=== PATIENT | female | born 1960 | race Caucasian/White ===

== ENCOUNTER 2017-09-15 04:59 | Emergency (ER) | payer OTHER, SELFPAY ==
[2017-09-15 05:07] VITALS: BP 119/82; PULSE 86; RESP 20; TEMP 36.8; O2SAT 97; BMI 25.0
[2017-09-15 05:17] VITALS: BP 119/82; PULSE 86; RESP 20; TEMP 36.8; O2SAT 97; BMI 25.0
--- NOTE | 2017-09-15 05:18 | ED.DENTAL ---
HPI - Dental/Oral General Chief complaint: Dental/Oral Stated complaint: Right jaw pain into ear Time Seen by Provider: 09/15/17 05:18 Source: patient Mode of arrival: ambulatory Limitations: no limitations History of Present Illness HPI Narrative: The patient has developed right jaw pain. She has increased pain with opening her mouth. She has no facial swelling. She has no sore throat, sinus pressure or ear pain. She has no fever. The pain started 2 days ago, and is intensifying. She has no significant history of dental disease. Related Data Previous Rx's Medication Instructions Recorded lorazepam 1 mg tablet See Label Instructions PO TID #90 09/13/17 tab amoxicillin 500 mg PO TID #30 cap 09/15/17 fluconazole [Diflucan] See Label Instructions .ROUTE 09/15/17 .COMPLEX #1 tab hydrocodone-acetaminophen [[facility]] 1 tab PO Q4H PRN #10 tab 09/15/17 Allergies Allergy/AdvReac Type Severity Reaction Status Date / Time hydromorphone [From DILAUDID] AdvReac Mild VOMITING Verified 09/15/17 05:11 Review of Systems Constitutional Reports as per HPI, Denies chills, Denies fever(s), Denies lethargy and Denies weakness ENT Ears, Nose, Mouth, and Throat: Denies dry mouth, Denies ear discharge, Reports facial pain, Denies hoarseness, Denies mouth lesions, Denies nasal congestion, Denies sinus pressure and Denies sore throat Cardiovascular Denies chest pain at rest Neurologic Denies weakness [facility] Surgical History History of third molar tooth extraction Status post cone biopsy of cervix Status post tonsillectomy and adenoidectomy Social History Smoking Status: Never smoker Exam Initial Vital Signs Initial Vital Signs: Vital Signs Temperature 98.2 F 09/15/17 05:07 Pulse Rate 86 09/15/17 05:07 Respiratory Rate 20 09/15/17 05:07 Blood Pressure 119/82 H 09/15/17 05:07 Pulse Oximetry 97 09/15/17 05:07 Const General: cooperative and well developed Nutritional Appearance: well nourished Orientation: alert, awake, oriented x3 and not confused HENMT Head: normocephalic and atraumatic Ears: TM's normal bilaterally Nose: nasal mucous membranes and turbinates normal Face and sinus: normal facial exam and sinuses nontender Mouth: oral mucosae normal Teeth and gingiva: abnormal tooth or associated gingiva (Tenderness at tooth #2. Suggestive of dental abscess. There is no significant fluctuance at the base. There is ) and caries (#2) Throat: posterior oropharynx normal Neck Neck: No anterior neck swelling and No lymphadenopathy Course Orders Ordered: Hydrocodone Bitart/Acetaminophen ([facility] 5/325) 1 tab PO NOW ONE Stop: 09/15/17 05:27 Amoxicillin (Trimox) 500 mg PO NOW ONE Stop: 09/15/17 05:27 Ketorolac Tromethamine (Toradol) 60 mg IM NOW ONE Stop: 09/15/17 05:27 Vital Signs - 8 hr 09/15/17 05:07 09/15/17 05:17 Temperature 98.2 F 98.2 F Pulse Rate 86 86 Respiratory Rate 20 20 Blood Pressure 119/82 H 119/82 H Pulse Oximetry 97 97 Discharge Plan Departure Patient Disposition: Home, Self-Care Clinical Impression: Dental abscess Instructions: Tooth Abscess Activity Restrictions/Additional Instructions: Amoxicillin 500 milligrams 3 times daily. Advil 3 tablets every 6 hours as needed for pain. [facility] every 4 hours as needed for added pain control. Return here for fever or significant facial swelling. Make a plan to see a dentist in 2-3 weeks. Prescriptions: New amoxicillin 500 mg capsule 500 mg PO TID Qty: 30 RF: 0 fluconazole [Diflucan] 100 mg tablet See Label Instructions .ROUTE .COMPLEX Qty: 1 RF: 0 hydrocodone-acetaminophen [[facility]] 5-325 mg tablet 1 tab PO Q4H PRN (Reason: pain) Qty: 10 RF: 0 No Action lorazepam 1 mg tablet See Label Instructions PO TID Qty: 90 RF: 3
[2017-09-15] MEDS: KETOROLAC 60 MG/2 ML VIAL IM (05:32)
[2017-09-15] MEDS: AMOXICILLIN 250 MG CAPSULE 500 MG PO (05:33)
[2017-09-15] MEDS: HYDROCODONE/ACET 5/325 TABLET 1 TAB PO (05:33)
--- NOTE | 2017-09-15 05:53 | ED_ITS ---
HPI - Dental/Oral General Chief complaint: Dental/Oral Stated complaint: Right jaw pain into ear Time Seen by Provider: 09/15/17 05:18 Source: patient Mode of arrival: ambulatory Limitations: no limitations History of Present Illness HPI Narrative: The patient has developed right jaw pain. She has increased pain with opening her mouth. She has no facial swelling. She has no sore throat, sinus pressure or ear pain. She has no fever. The pain started 2 days ago, and is intensifying. She has no significant history of dental disease. Related Data Previous Rx's Medication Instructions Recorded lorazepam 1 mg tablet See Label Instructions PO TID #90 09/13/17 tab amoxicillin 500 mg PO TID #30 cap 09/15/17 fluconazole [Diflucan] See Label Instructions .ROUTE 09/15/17 .COMPLEX #1 tab hydrocodone-acetaminophen [[employer]] 1 tab PO Q4H PRN #10 tab 09/15/17 Allergies Allergy/AdvReac Type Severity Reaction Status Date / Time hydromorphone [From DILAUDID] AdvReac Mild VOMITING Verified 09/15/17 05:11 Review of Systems Constitutional Reports as per HPI, Denies chills, Denies fever(s), Denies lethargy and Denies weakness ENT Ears, Nose, Mouth, and Throat: Denies dry mouth, Denies ear discharge, Reports facial pain, Denies hoarseness, Denies mouth lesions, Denies nasal congestion, Denies sinus pressure and Denies sore throat Cardiovascular Denies chest pain at rest Neurologic Denies weakness [facility] Surgical History History of third molar tooth extraction Status post cone biopsy of cervix Status post tonsillectomy and adenoidectomy Social History Smoking Status: Never smoker Exam Initial Vital Signs Initial Vital Signs: Vital Signs Temperature 98.2 F 09/15/17 05:07 Pulse Rate 86 09/15/17 05:07 Respiratory Rate 20 09/15/17 05:07 Blood Pressure 119/82 H 09/15/17 05:07 Pulse Oximetry 97 09/15/17 05:07 Const General: cooperative and well developed Nutritional Appearance: well nourished Orientation: alert, awake, oriented x3 and not confused HENMT Head: normocephalic and atraumatic Ears: TM's normal bilaterally Nose: nasal mucous membranes and turbinates normal Face and sinus: normal facial exam and sinuses nontender Mouth: oral mucosae normal Teeth and gingiva: abnormal tooth or associated gingiva (Tenderness at tooth # 2. Suggestive of dental abscess. There is no significant fluctuance at the base. There is ) and caries (#2) Throat: posterior oropharynx normal Neck Neck: No anterior neck swelling and No lymphadenopathy Course Orders Ordered: Hydrocodone Bitart/Acetaminophen ([employer] 5/325) 1 tab PO NOW ONE Stop: 09/15/17 05:27 Amoxicillin (Trimox) 500 mg PO NOW ONE Stop: 09/15/17 05:27 Ketorolac Tromethamine (Toradol) 60 mg IM NOW ONE Stop: 09/15/17 05:27 Vital Signs - 8 hr 09/15/17 05:07 09/15/17 05:17 Temperature 98.2 F 98.2 F Pulse Rate 86 86 Respiratory Rate 20 20 Blood Pressure 119/82 H 119/82 H Pulse Oximetry 97 97 Discharge Plan Departure Patient Disposition: Home, Self-Care Clinical Impression: Dental abscess Instructions: Tooth Abscess Activity Restrictions/Additional Instructions: Amoxicillin 500 milligrams 3 times daily. Advil 3 tablets every 6 hours as needed for pain. [employer] every 4 hours as needed for added pain control. Return here for fever or significant facial swelling. Make a plan to see a dentist in 2-3 weeks. Prescriptions: New amoxicillin 500 mg capsule 500 mg PO TID Qty: 30 RF: 0 fluconazole [Diflucan] 100 mg tablet See Label Instructions .ROUTE .COMPLEX Qty: 1 RF: 0 hydrocodone-acetaminophen [[employer]] 5-325 mg tablet 1 tab PO Q4H PRN (Reason: pain) Qty: 10 RF: 0 No Action lorazepam 1 mg tablet See Label Instructions PO TID Qty: 90 RF: 3
[2017-09-15 06:00] VITALS: BP 122/87; PULSE 83; RESP 15; TEMP 36.8; O2SAT 96
== END 2017-09-15 06:03 | disposition home or self-care (01) ==
PROVIDERS: Emergency Provider Emergency Medicine; Family Provider Family Medicine; PCP Family Medicine
DX: R68.84 Jaw pain (principal)
CPT/HCPCS: 99282; J1885

== ENCOUNTER 2017-09-15 14:25 | Emergency (ER) | payer OTHER, SELFPAY ==
[2017-09-15 14:40] VITALS: BP 134/87; PULSE 80; RESP 20; TEMP 36.7; O2SAT 99
--- NOTE | 2017-09-15 15:06 | ED.DENTAL ---
HPI - Dental/Oral <Ling Hirsch PA-C - Last Filed: 09/15/17 20:26> General Chief complaint: Dental/Oral Stated complaint: TOOTH ABSCESS Time Seen by Provider: 09/15/17 15:08 Source: patient Mode of arrival: ambulatory Limitations: no limitations History of Present Illness HPI Narrative: This 57-year-old female was seen here earlier this morning due to dental pain. She was diagnosed with infection. Prescribed antibiotic and pain medication. Pain medication did help when she took it here but she has not filled her prescriptions yet. She does not have any new fever, but has had persistent pain that she feels like is in her throat, jaw, and ear area now. She talked with our triage nurse who was able to get her an appointment with a local dentist in about an hour. Related Data Previous Rx's Medication Instructions Recorded lorazepam 1 mg tablet See Label Instructions PO TID #90 09/13/17 tab amoxicillin 500 mg PO TID #30 cap 09/15/17 fluconazole [Diflucan] See Label Instructions .ROUTE 09/15/17 .COMPLEX #1 tab hydrocodone-acetaminophen [[place]] 1 tab PO Q4H PRN #10 tab 09/15/17 Allergies Allergy/AdvReac Type Severity Reaction Status Date / Time hydromorphone [From DILAUDID] AdvReac Mild VOMITING Verified 09/15/17 05:11 Review of Systems <Ling Hirsch PA-C - Last Filed: 09/15/17 20:26> Review of Systems All systems reviewed & are unremarkable except as noted in HPI and below Exam <FLY Tran Last Filed: 09/15/17 20:26> Narrative Exam Narrative: GENERAL APPEARANCE: Patient resting, appears somewhat uncomfortable but in NAD HEAD: No sinus TTP. EYES: PERRL, EOMI. EARS: Normal auditory canals, TMS intact with normal light reflexes. ORAL CAVITY: Right upper 2nd molar is jagged with caries and appears to have some exposed pulp THROAT: Clear. NECK/THYROID: Neck supple, full range of motion LUNGS: Clear to auscultation bilaterally HEART: RRR without murmur, nl S1, S2, no S3 or S4. Initial Vital Signs Initial Vital Signs: Vital Signs Temperature 98.1 F 09/15/17 14:40 Pulse Rate 80 09/15/17 14:40 Respiratory Rate 20 09/15/17 14:40 Blood Pressure 134/87 H 09/15/17 14:40 Pulse Oximetry 99 09/15/17 14:40 <Vianney Alvarez DO - Last Filed: 09/16/17 08:53> Initial Vital Signs Initial Vital Signs: Vital Signs Temperature 98.1 F 09/15/17 14:40 Pulse Rate 80 09/15/17 14:40 Respiratory Rate 20 09/15/17 14:40 Blood Pressure 134/87 H 09/15/17 14:40 Pulse Oximetry 99 09/15/17 14:40 Course <Ling Hirsch PA-C - Last Filed: 09/15/17 20:26> Hospital Course: 20% benzocaine gel and a pledget were applied to the affected area which gave patient some relief and she is discharged directly to the dentist's office Vital Signs - 8 hr 09/15/17 14:40 Temperature 98.1 F Pulse Rate 80 Respiratory Rate 20 Blood Pressure 134/87 H Pulse Oximetry 99 <Vianney Alvarez DO - Last Filed: 09/16/17 08:53> Vital Signs - 8 hr 09/15/17 14:40 Temperature 98.1 F Pulse Rate 80 Respiratory Rate 20 Blood Pressure 134/87 H Pulse Oximetry 99 Discharge Plan Departure Patient Disposition: Home, Self-Care Clinical Impression: Pain, dental Discharge Date/Time: 09/15/17 15:26 Interventions: ED Discharge Assessment Last Done: 09/15/17 15:26 Instructions: DI for Dental Pain Activity Restrictions/Additional Instructions: See the dentist when you leave here, and discuss whether you should fill the prescriptions were given earlier today or whether he would like you to take something else. I think your pain is related to the pulp of your tooth being exposed which is causing nerve pain. The topical medicine we used here will help numb it temporarily but the dentist will need to help you with fixing the source of the pain Prescriptions: No Action lorazepam 1 mg tablet See Label Instructions PO TID Qty: 90 RF: 3 amoxicillin 500 mg capsule 500 mg PO TID Qty: 30 RF: 0 fluconazole [Diflucan] 100 mg tablet See Label Instructions .ROUTE .COMPLEX Qty: 1 RF: 0 hydrocodone-acetaminophen [[place]] 5-325 mg tablet 1 tab PO Q4H PRN (Reason: pain) Qty: 10 RF: 0 Referrals: Haroon Gimenez MD [Primary Care Provider] - <Vianney Alvarez DO - Last Filed: 09/16/17 08:53> Cosign ED Attending [place] Attestation: I was immediately available in the department for consultation. Documentation has been reviewed. I agree with assessment and plan.
== END 2017-09-15 15:26 | disposition home or self-care (01) ==
PROVIDERS: Emergency Provider Internal Medicine; Family Provider Family Medicine; PCP Family Medicine
DX: K08.89 Other specified disorders of teeth and supporting structures (principal)
CPT/HCPCS: 93005; 99282; 99283; J1885

== ENCOUNTER → 2017-11-13 12:03 | Outpatient (CLI) | payer SELFPAY ==
--- NOTE | 2017-11-13 12:04 | DI.RAD.S_ITS ---
PROCEDURE: XR FOOT RT MIN 3V INDICATIONS: INJURY OF RIGHT FOOT TECHNIQUE: 3 views of the foot were acquired. COMPARISON: [facility], , FOOT 3V LEFT, 09/23/2014, 13:11. FINDINGS: Bones: No fractures or dislocations. No suspicious bony lesions. Soft tissues: No tibiotalar joint effusion. Achilles tendon appears normal. IMPRESSION: No acute right foot fracture or dislocation. Dictated by: Jose Garner M.D. on 11/13/2017 at 13:44 Approved by: Jose Garner M.D. on 11/13/2017 at 13:45
== END ==
PROVIDERS: Family Provider Family Medicine; PCP Family Medicine; Visit Provider Family Medicine
DX: S99.921A Unspecified injury of right foot, initial encounter (principal)
CPT/HCPCS: 73630

== ENCOUNTER → 2018-08-19 15:35 | Outpatient (CLI) | payer OTHER, SELFPAY ==
--- NOTE | 2018-08-19 15:38 | DI.RAD.S_ITS ---
PROCEDURE: XR KNEE LT 3V INDICATIONS: fall, pain and bruising over patella TECHNIQUE: 3 views of the knee were acquired. COMPARISON: [facility] JAIDEN Dhaliwal, KNEE SERIES RT, 06/29/2015, 9:07. FINDINGS: Bones: No fractures or dislocations. No suspicious bony lesions. Soft tissues: No joint effusion. No suspicious soft tissue calcifications. IMPRESSION: No acute osseous abnormality of the left knee is evident. Dictated by: Derek Kamara M.D. on 08/19/2018 at 14:52 Approved by: Derek Kamara M.D. on 08/19/2018 at 14:53
== END ==
PROVIDERS: Family Provider Family Medicine; PCP Family Medicine; Visit Provider Physician Assistant
DX: S89.92XA Unspecified injury of left lower leg, initial encounter (principal); W19.XXXA Unspecified fall, initial encounter
CPT/HCPCS: 73562

== ENCOUNTER 2019-10-13 20:12 | Emergency (ER) | payer OTHER, SELFPAY ==
[2019-10-13] VITALS (14 sets, daily range): BP systolic 119–157; BP diastolic 76–94; PULSE 66–89; RESP 15–27; TEMP 37; O2SAT 96–100; BMI 28.1
--- NOTE | 2019-10-13 20:17 | ED_ITS ---
HPI - General Adult General Chief complaint: Chest Pain Stated complaint: chest pains, SOB, jaw pain Time Seen by Provider: 10/13/19 20:16 Source: patient Mode of arrival: Ambulatory Limitations: no limitations History of Present Illness HPI narrative: Patient is a 59-year-old female here for evaluation of left-sided chest pain and neck pain. She states that she has had the symptoms for which she thinks is the past week. She thinks that it has been off and on for the past week but does admit that she has had the symptoms more often than not during this time. She is currently having the symptoms. She states that today's symptoms started just after noon today. She feels like the but consistent since this time. Patient reports that it is not worse with eating. Is somewhat worse with movement and palpation. Is associated somewhat with shortness of breath foot this is not definitive to her. Has not tried anything for symptoms prior to arrival. Patient states that she had a stress test earlier this year prior to the COVID-19 pandemic outbreak in the local area. She states that the stress test was ordered secondary to symptoms that are very similar but not exactly the same as which she is having today. She does not know the results of the stress test. Patient did take 2 full-dose aspirins p rior to arrival. Related Data Allergies Allergy/AdvReac Type Severity Reaction Status Date / Time hydromorphone [From DILAUDID] AdvReac Mild VOMITING Verified 10/13/19 20:22 Review of Systems Constitutional Constitutional: Denies fatigue, Denies fever(s) and Denies headache(s) Eyes Eyes: Denies change in vision ENT Ears, Nose, Mouth, and Throat: Denies headache(s), Reports neck pain (Anterior), Denies sinus pressure, Denies sore throat, Denies throat swelling and Denies tongue swelling Cardiovascular Cardiovascular: Reports chest pain, Reports dyspnea and Denies dyspnea on exertion Respiratory Respiratory: Denies cough, Reports dyspnea and Denies dyspnea on exertion Gastrointestinal Gastrointestinal: Denies abdominal pain, Denies change in bowel habits, Denies nausea and Denies vomiting Genitourinary Genitourinary: Denies dysuria Genitourinary: Denies dysuria Musculoskeletal Musculoskeletal: Denies arthralgias, Denies back pain, Denies myalgias and Reports neck pain (Anterior) Integumentary/Breasts Skin/Breast: Denies rash Neurologic Neurologic: Denies behavioral changes and Denies headache(s) Psychiatric Psychiatric: Denies behavioral changes Endocrine Endocrine: Denies fatigue Hematologic/Lymphatic Hematologic/Lymphatic: Denies easy bleeding and Denies easy bruising Allergic/Immunologic Allergic/Immunologic: Denies urticaria, Denies throat swelling and Denies tongue swelling Patient History Medical History Anxiety (10/21/14) Injury of tooth (Inactive) Lip laceration (Inactive) Multiple fractures (10/21/14) Osteoporosis (12/11/14) Perimenopausal menorrhagia (10/21/14) Surgical History History of third molar tooth extraction Status post cone biopsy of cervix Status post tonsillectomy and adenoidectomy Social History Smoking Status: Never smoker Smoking Status: Never smoker Exam Initial Vital Signs Initial Vital Signs: Vital Signs Temperature 98.6 F 10/13/19 20:17 Pulse Rate 89 10/13/19 20:17 Respiratory Rate 20 10/13/19 20:17 Blood Pressure 157/94 H 10/13/19 20:17 Pulse Oximetry 97 10/13/19 20:17 Const General: cooperative, comfortable and well developed Limitations: mental status not altered HENWV Head: normal to inspection and normocephalic Neck Neck: no meningeal signs, trachea midline and supple Thyroid: thyroid normal, symmetrical, not firm and no nodules Lymphatic: No lymphedema and No lymphadenopathy Chest Chest: No crepitus and tenderness (Left-sided) Resp Effort & Inspection: normal respiratory effort Auscultation: clear to auscultation bilaterally Cardio Rate: regular rate Rhythm: regular rhythm GI Inspection: non-distended Palpation: soft Skin Lesions: no lesions Rashes: no rashes Neuro General: patient alert, patient awake and patient oriented x3 Cognition: normal cognition Speech: speech normal Extrem General: normal to inspection and capillary refill normal Psych Appearance: grossly normal and well kempt Scores GCS [place] coma scale eye opening: Spontaneous [place] coma scale verbal response: Orientated [place] coma scale motor response: Obey commands [place] coma scale total score: 15 HEART Score Heart Score history: Moderately Suspicious Heart Score EKG: Normal Heart Score Age: 45-64 years old Heart Score risk factors: No known risk factors Heart Score troponin: < or = to normal limit Heart Score Total: 2 Course Orders Ordered: ED Orders 10/13/19 20:18 XR chest 1V Stat EKG-12 Lead Stat 10/13/19 20:27 Complete Blood Count AUTO DIFF Stat Comprehensive Metabolic Panel Stat Partial Thromboplastin Time Stat Prothrombin Time INR Stat Troponin I Stat 10/13/19 23:31 Troponin I Stat Discontinued Medications Aspirin (Aspirin Chew) 324 mg PO NOW ONE Stop: 10/13/19 20:22 Last Admin: 10/13/19 20:48 Dose: Not Given Documented by: ABILIO Vital Signs Vital signs: Vital Signs - 8 hr 10/13/19 20:17 10/13/19 20:18 10/13/19 20:30 Temperature 98.6 F Pulse Rate 89 89 81 Respiratory Rate 20 19 22 Blood Pressure 157/94 H 157/94 H Pulse Oximetry 97 98 99 10/13/19 20:31 10/13/19 21:00 10/13/19 21:01 Temperature Pulse Rate 79 71 77 Respiratory Rate 18 19 27 H Blood Pressure 143/83 H 135/82 135/82 Pulse Oximetry 98 99 98 10/13/19 21:30 10/13/19 22:00 10/13/19 22:23 Temperature Pulse Rate 67 74 69 Respiratory Rate 16 17 23 Blood Pressure 124/76 144/78 H Pulse Oximetry 99 100 98 10/13/19 22:24 10/13/19 22:30 10/13/19 23:00 Temperature Pulse Rate 66 75 67 Respiratory Rate 18 20 16 Blood Pressure 144/78 H Pulse Oximetry 99 98 96 10/13/19 23:17 10/13/19 23:30 10/14/19 00:00 Temperature Pulse Rate 66 75 71 Respiratory Rate 15 16 18 Blood Pressure 119/80 133/82 119/79 Pulse Oximetry 97 98 97 Medical Decision Making Medical Records Medical records reviewed: Yes I reviewed the patient's medical records. Lab Data Lab results reviewed: Yes I reviewed the patient's lab results. Result diagrams: 10/13/19 20:27 10/13/19 20:27 Labs: Lab Results 10/13/19 10/13/19 10/13/19 Range/Units 20:27 20:27 20:27 WBC 7.4 (4.5-11.0) X10^3/uL RBC 4.54 (4.0-5.2) X10^6/uL Hgb 13.5 (12.0-16.0) g/dL Hct 39.9 (36-46) % MCV 87.9 (80-100) fL MCH 29.6 (26-34) PG MCHC 33.7 (30-36) % RDW 12.9 (11.6-14.8) % Plt Count 260 (150-400) X10^3/uL Neut % (Auto) 61.2 (50-75) % Lymph % (Auto) 26.2 (25-40) % Posey % (Auto) 9.7 (3-14) % Eos % (Auto) 2.4 (2-4) % Baso % (Auto) 0.5 (0-2) % Neut # (Auto) 4500 (8374-0494) /uL Lymph # (Auto) 1900 (1498-0678) /uL Posey # (Auto) 700 (0-900) /uL Eos # (Auto) 200 (0-450) /uL Baso # (Auto) 0 (0-100) /uL PT 10.6 (10.1-12.7) SECONDS INR 0.9 (0.9-1.3) APTT 31 (26.4-36.2) SECONDS Sodium 138 (137-145) mmol/L Potassium 4.3 (3.4-5.1) mmol/L Chloride 106 (98-107) mmol/L Carbon Dioxide 25 (22-32) mmol/L BUN 8 (7-17) mg/dL Creatinine 0.95 (0.52-1.04) mg/dL Estimated GFR > 60.0 (>60) mL/min BUN/Creatinine Ratio 8.4 (6-22) Glucose 84 (70-100) mg/dL Calcium 9.4 (8.4-10.2) mg/dL Total Bilirubin 0.1 L (0.2-1.3) mg/dL AST 25 (14-36) IU/L ALT 17 (<35) IU/L Alkaline Phosphatase 67 (38-126) U/L Troponin I 0.013 (0.01-0.034) ng/mL Total Protein 6.9 (6.3-8.2) g/dL Albumin 4.1 (3.5-5.0) g/dL Globulin 2.8 (1.7-4.1) g/dL Albumin/Globulin Ratio 1.5 (1.0-2.8) 10/13/19 Range/Units 23:31 WBC (4.5-11.0) X10^3/uL RBC (4.0-5.2) X10^6/uL Hgb (12.0-16.0) g/dL Hct (36-46) % MCV (80-100) fL MCH (26-34) PG MCHC (30-36) % RDW (11.6-14.8) % Plt Count (150-400) X10^3/uL Neut % (Auto) (50-75) % Lymph % (Auto) (25-40) % Posey % (Auto) (3-14) % Eos % (Auto) (2-4) % Baso % (Auto) (0-2) % Neut # (Auto) (3230-9795) /uL Lymph # (Auto) (8239-7983) /uL Posey # (Auto) (0-900) /uL Eos # (Auto) (0-450) /uL Baso # (Auto) (0-100) /uL PT (10.1-12.7) SECONDS INR (0.9-1.3) APTT (26.4-36.2) SECONDS Sodium (137-145) mmol/L Potassium (3.4-5.1) mmol/L Chloride (98-107) mmol/L Carbon Dioxide (22-32) mmol/L BUN (7-17) mg/dL Creatinine (0.52-1.04) mg/dL Estimated GFR (>60) mL/min BUN/Creatinine Ratio (6-22) Glucose (70-100) mg/dL Calcium (8.4-10.2) mg/dL Total Bilirubin (0.2-1.3) mg/dL AST (14-36) IU/L ALT (<35) IU/L Alkaline Phosphatase (38-126) U/L Troponin I 0.016 (0.01-0.034) ng/mL Total Protein (6.3-8.2) g/dL Albumin (3.5-5.0) g/dL Globulin (1.7-4.1) g/dL Albumin/Globulin Ratio (1.0-2.8) Imaging Data Chest x-ray: Radiologist's Impression: [address] [address] XRay Report Signed Patient: Marlyn Armendariz [facility]#: [id number] : 2Acct:[id number] Age/Sex: 59 / FDate of Service: 10/13/19 Loc: ED Accession Number: [id number] Procedure: XR chest 1V Ordering Provider: Yossi Pedraza D.O. PROCEDURE: XR CHEST 1V INDICATIONS: Chest pain TECHNIQUE: One view of the chest was acquired. COMPARISON: [facility], , CHEST 1 VIEW, 07/24/2014, 9:58. FINDINGS: Surgical changes and devices: None. Lungs and pleura: Mild appearance of increased pulmonary vascularity is present. Mediastinum: Mediastinal contours appear normal. Heart size is normal. Bones and chest wall: No suspicious bony lesions. Overlying soft tissues tanja ear unremarkable. IMPRESSION: Mild increased vascularity suggestive of edema. Dictated by: Carmen Juan M.D. on 10/13/2019 at 20:34 Approved by: Carmen Juan M.D. on 10/13/2019 at 20:35 ECG Data Attestation: I personally reviewed and interpreted this ECG as follows: Prior ECG tracings: not available for review Interpretation: Sinus rhythm Ventricular rate is 77 Normal axis Normal QRS Normal QTC No ST T wave changes MDM Narrative Medical decision making narrative: Was able to obtain the stress test that she had performed on 06/03/2019. This showed a normal myocardial perfusion study with no fixed or reversible perfusion deficits. Had a normal left ventricular function with no segmental wall motion abnormalities and normal stress left ventricular ejection function of 87%. Patient does have a low risk heart score. EKG unremarkable with no ST T wave changes. Troponins negative x2 with the 2nd 1 definitely greater than 6 hours in the 1st 1 potentially greater than 6 hours after the onset of her consistent symptoms today. I feel patient could be safely discharged home with workup from her primary provider. I did discuss the case with Dr. Colvin who is the patient's primary provider who stated the patient can call her tomorrow morning for follow-up the beginning of this week. I did discuss this with the patient. We discussed return precautions and follow-up instructions. She expressed understanding and agreement. Discharge Plan Departure Patient Disposition: Home Clinical Impression: Atypical chest pain Discharge Date/Time: 10/14/19 00:36 Instructions: DI for Atypical Chest Pain Activity Restrictions/Additional Instructions: Recommend [facility] a call at [phone] to follow-up with Dr. Colvin at the beginning of this week. I did speak with her this evening and she is expecting her call. Continue all of your medications as directed. Return to the emergency department for any new or worsening symptoms Referrals: Haroon Gimenez MD [Primary Care Provider] -
[2019-10-13 20:39] LABS: Add Manual Diff / Slide Review NO; Basophils Absolute Auto 0 /uL (0-100); Basophils Percent Auto 0.5 % (0-2); Eosinophils Absolute Auto 200 /uL (0-450); Eosinophils Percent Auto 2.4 % (2-4); Hematocrit 39.9 % (36-46); Hemoglobin 13.5 g/dL (12.0-16.0); Lymphocytes Absolute Auto 1900 /uL (1100-4500); Lymphocytes Percent Auto 26.2 % (25-40); Mean Corpuscular HGB Conc 33.7 % (30-36); Mean Corpuscular Hemoglobin 29.6 PG (26-34); Mean Corpuscular Volume 87.9 fL (80-100); Monocytes Absolute Auto 700 /uL (0-900); Monocytes Percent Auto 9.7 % (3-14); Neutrophils Absolute Auto 4500 /uL (1500-7000); Neutrophils Percent Auto 61.2 % (50-75); Platelet Count 260 X10^3/uL (150-400); Red Blood Cell Count 4.54 X10^6/uL (4.0-5.2); Red Cell Distribution Width 12.9 % (11.6-14.8); White Blood Cell Count 7.4 X10^3/uL (4.5-11.0)
[2019-10-13 20:49] LABS: INR 0.9 (0.9-1.3); Prothrombin Time 10.6 SECONDS (10.1-12.7)
[2019-10-13 20:51] LABS: PTT Partial Thromboplastin Tim 31 SECONDS (26.4-36.2)
[2019-10-13 20:53] LABS: Alanine Aminotransferase 17 IU/L (<35); Albumin 4.1 g/dL (3.5-5.0); Albumin Globulin Ratio 1.5 (1.0-2.8); Alkaline Phosphatase 67 U/L (38-126); Aspartate Aminotransferase 25 IU/L (14-36); BUN Creatinine Ratio 8.4 (6-22); Bilirubin Total 0.1 mg/dL (0.2-1.3); Blood Urea Nitrogen 8 mg/dL (7-17); Calcium 9.4 mg/dL (8.4-10.2); Carbon Dioxide 25 mmol/L (22-32); Chloride 106 mmol/L (98-107); Estimated Glomerular Filt Rate > 60.0 mL/min (>60); Globulin 2.8 g/dL (1.7-4.1); Glucose 84 mg/dL (70-100); HEMOLYSIS < 15 (0-50); Potassium 4.3 mmol/L (3.4-5.1); Sodium 138 mmol/L (137-145); Total Protein 6.9 g/dL (6.3-8.2)
[2019-10-13 21:05] LABS: Troponin I 0.013 ng/mL (0.01-0.034)
[2019-10-14] VITALS: BP 119/79; PULSE 71; RESP 18; O2SAT 97
[2019-10-14 00:04] LABS: Troponin I 0.016 ng/mL (0.01-0.034)
== END 2019-10-14 00:36 | disposition home or self-care (01) ==
PROVIDERS: Emergency Provider Emergency Medicine; Family Provider Family Medicine; PCP Family Medicine
DX: R07.89 Other chest pain (principal); M54.2 Cervicalgia; R06.02 Shortness of breath
CPT/HCPCS: 36415; 71045; 80053; 84484; 85025; 85610; 85730; 93005; 99284

== ENCOUNTER → 2019-10-16 10:30 | Outpatient (ROUT) | payer OTHER, SELFPAY ==
[2019-10-16 10:49] LABS: D Dimer < 200 ng/mL (<230)
== END ==
PROVIDERS: Family Provider Family Medicine; PCP Family Medicine; Visit Provider Student in an Organized Health Care Education/Training Program
DX: R07.89 Other chest pain (principal)
CPT/HCPCS: 85379

== ENCOUNTER → 2020-01-08 15:55 | Outpatient (CLI) | payer OTHER, SELFPAY ==
--- NOTE | 2020-01-08 | DI.MRI.S_ITS ---
PROCEDURE: MR KNEE RT WO CON INDICATIONS: Rt knee pain TECHNIQUE: Noncontrast sagittal PD fast spin echo and stir, sagittal 3-D FLASH with fat saturation; coronal T1 spin echo and PD fast spin echo with fat saturation, and axial PD fast spin echo through the knee. COMPARISON: [facility], , KNEE 1-2 VIEWS RIGHT, 05/20/2015, 17:15. FINDINGS: Image quality: Excellent. Menisci: The medial and lateral menisci demonstrate normal morphology and internal signal. The meniscal root ligaments appear intact. Cruciate ligaments: The anterior and posterior cruciate ligaments appear intact. Medial structures: The medial collateral ligament appears intact. The semimembranosus tendon insertions and meniscocapsular junction appear intact. Visualized portions of the pes anserinus tendons appear normal. No abnormal bursal fluid. Lateral structures: The lateral collateral ligament, long and short heads of the biceps femoris tendon appear intact. The popliteus tendon appears intact. No signs of posterolateral corner injury. Iliotibial band appears normal. Anterior structures: The quadriceps and patellar tendons appear intact. Patellar alignment is normal. Bones and cartilage: Postsurgical changes are seen from anterior unicompartmental knee arthroplasty with associated metallic artifact that partially compromises evaluation of surrounding structures. No bone marrow contusions or fractures. The cartilage of the medial and lateral femorotibial compartments appears normal in thickness. Joint space: There is a small joint effusion. Decreased signal is seen in the suprapatellar fat pad that may be related to postsurgical scarring, arthrofibrosis, or fat pad impingement. Mild scarring is seen in Hoffa's fat pad. IMPRESSION: 1. Postsurgical changes from anterior unicompartmental knee arthroplasty. 2. Decreased signal intensity and mild bulging of the anterior suprapatellar fat pad may be related to postsurgical scarring, arthrofibrosis, or fat pad impingement. 3. Small joint effusion. Small medial popliteal cyst. 4. Intact cruciate and collateral ligaments. No meniscal tear. Dictated by: Marcus Moy M.D. on 01/08/2020 at 17:15 Approved by: Marcus Moy M.D. on 01/08/2020 at 17:24
== END ==
PROVIDERS: Family Provider Family Medicine; PCP Family Medicine; Referring Provider Student in an Organized Health Care Education/Training Program; Visit Provider Student in an Organized Health Care Education/Training Program
DX: M25.561 Pain in right knee (principal); M71.21 Synovial cyst of popliteal space [Baker], right knee; M25.461 Effusion, right knee
CPT/HCPCS: 73721

== ENCOUNTER → 2020-01-19 13:53 | Outpatient (CLI) | payer OTHER, SELFPAY ==
[2020-01-20 15:08] LABS: COVID19 Sendout Not Detected (Not Detect)
== END ==
PROVIDERS: Family Provider Family Medicine; PCP Family Medicine; Visit Provider Physician Assistant
DX: Z11.59 Encounter for screening for other viral diseases (principal)
CPT/HCPCS: 87635

== ENCOUNTER → 2020-01-21 12:49 | Outpatient (ROUT) | payer OTHER, SELFPAY ==
[2020-01-21 14:17] LABS: INR 0.9 (0.9-1.3); Prothrombin Time 10.9 SECONDS (10.1-12.7)
== END ==
PROVIDERS: Family Provider Family Medicine; PCP Family Medicine; Visit Provider Family Medicine
DX: R21 Rash and other nonspecific skin eruption (principal); M25.561 Pain in right knee; R53.83 Other fatigue; G89.29 Other chronic pain
CPT/HCPCS: 85610

== ENCOUNTER → 2020-01-21 14:38 | Outpatient (ROUT) | payer OTHER, SELFPAY | PROVIDERS: Family Provider Family Medicine; PCP Family Medicine; Visit Provider Student in an Organized Health Care Education/Training Program | DX: J02.9 Acute pharyngitis, unspecified (principal); R21 Rash and other nonspecific skin eruption; M25.561 Pain in right knee; R53.83 Other fatigue; G89.29 Other chronic pain | CPT/HCPCS: 85610; 87070 ==

== ENCOUNTER 2020-03-12 16:13 | Emergency (ER) | payer OTHER, SELFPAY ==
[2020-03-12] VITALS (12 sets, daily range): BP systolic 132–167; BP diastolic 78–106; PULSE 79–94; RESP 12–25; TEMP 36.5; O2SAT 92–100; BMI 26.6
--- NOTE | 2020-03-12 16:44 | ED_ITS ---
HPI - General Adult <DO Tyrell Florentino Last Filed: 03/13/20 07:06> General Chief complaint: Abdominal Pain Stated complaint: Uncomfortable in Stomach, Sharp Pain Time Seen by Provider: 03/12/20 16:24 Source: patient Mode of arrival: Ambulatory Limitations: no limitations History of Present Illness HPI narrative: 60-year-old female without prior abdominal issues here for evaluation of left-sided abdominal pain. She states that she has had abdominal pain on the left side off and on for some time now. She has seen her primary doctor. States that her primary doctor thinks that she potentially has a hernia. Her normal abdominal pain started on Monday. She has had diarrhea since that time as well. She feels somewhat better after having an episode of diarrhea but then the symptoms returned. Has had some nausea but no vomiting. No fevers. No travel. No camping. States that this morning the pain changed somewhat where she was having sharp pain. Some burning when she urinates. Has not tried anything for symptoms prior to arrival Related Data Previous Rx's Medication Instructions Recorded hydrocodone-acetaminophen 1 tab PO Q4-6H PRN #10 tab 03/12/20 hyoscyamine sulfate 0.125 mg PO BID-QID PRN #20 tab 03/12/20 Allergies Allergy/AdvReac Type Severity Reaction Status Date / Time hydromorphone [From DILAUDID] AdvReac Mild VOMITING Verified 10/13/19 20:22 Review of Systems <Yossi Pedraza DO - Last Filed: 03/13/20 07:06> Constitutional Constitutional: Denies weakness Cardiovascular Cardiovascular: Denies chest pain and Denies dyspnea Respiratory Respiratory: Denies dyspnea Gastrointestinal Gastrointestinal: Reports abdominal pain, Reports diarrhea, Reports nausea and Denies vomiting Genitourinary Genitourinary: Reports dysuria Genitourinary: Reports dysuria Musculoskeletal Musculoskeletal: Denies arthralgias and Denies myalgias Integumentary/Breasts Skin/Breast: Denies lesions and Denies rash Neurologic Neurologic: Denies behavioral changes and Denies weakness Psychiatric Psychiatric: Denies behavioral changes Hematologic/Lymphatic Hematologic/Lymphatic: Denies easy bleeding and Denies easy bruising Allergic/Immunologic Allergic/Immunologic: Denies urticaria Patient History <DO Tyrell Florentino Last Filed: 03/13/20 07:06> Medical History (Updated 03/12/20 @ 20:21 by Ezio De La Rosa DO) Anxiety (10/21/14) Injury of tooth Lip laceration Multiple fractures (10/21/14) Osteoporosis (12/11/14) Perimenopausal menorrhagia (10/21/14) Surgical History History of third molar tooth extraction Status post cone biopsy of cervix Status post tonsillectomy and adenoidectomy Social History Smoking Status: Never smoker Smoking Status: Never smoker alcohol intake frequency: 0-2 drinks per day Alcohol type: wine Substance Use Type: does not use Exam <Yossi Pedraza DO - Last Filed: 03/13/20 07:06> Initial Vital Signs Initial Vital Signs: Vital Signs Temperature 97.7 F 03/12/20 16:15 Pulse Rate 91 H 03/12/20 16:15 Respiratory Rate 20 03/12/20 16:15 Blood Pressure 167/83 H 03/12/20 16:15 Pulse Oximetry 99 03/12/20 16:15 Const General: cooperative and comfortable Limitations: mental status not altered HENMT Head: normal to inspection and normocephalic Resp Effort & Inspection: normal respiratory effort Auscultation: clear to auscultation bilaterally Cardio Rate: regular rate Rhythm: regular rhythm GI Inspection: non-distended Palpation: soft, guarding and tender (Left-sided abdomen) Skin Lesions: no lesions Rashes: no rashes Neuro General: patient alert, patient awake and patient oriented x3 Cognition: normal cognition Speech: speech normal Extrem General: normal to inspection and capillary refill normal Psych Appearance: grossly normal and well kempt <Ezio De La Rosa DO - Last Filed: 03/12/20 23:40> Initial Vital Signs Initial Vital Signs: Vital Signs Temperature 97.7 F 03/12/20 16:15 Pulse Rate 91 H 03/12/20 16:15 Respiratory Rate 20 03/12/20 16:15 Blood Pressure 167/83 H 03/12/20 16:15 Pulse Oximetry 99 03/12/20 16:15 Course <DO Tyrell Florentino Last Filed: 03/13/20 07:06> Orders Ordered: Discontinued Medications Hydrocodone Bitart/Acetaminophen (Hydrocodone/Acet 5/325 Prepack) 1 bottle MISC SEEINSTR ONE Stop: 03/12/20 20:15 Last Admin: 03/12/20 20:37 Dose: 1 bottle Documented by: LAYNE Sodium Chloride (Normal Saline 0.9%) 1,000 mls @ 1,000 mls/hr IV BOLUS ONE Stop: 03/12/20 17:42 Last Infusion: 03/12/20 19:51 Dose: 0 mls/hr Documented by: Admin: 03/12/20 17:00 Dose: 1,000 mls/hr Documented by: LAYNE Morphine Sulfate (Morphine 4 Mg/Ml Inj) 4 mg IV NOW ONE Stop: 03/12/20 17:43 Last Admin: 03/12/20 17:49 Dose: 4 mg Documented by: LAYNE Ondansetron HCl (Ondansetron 4 Mg Odt Prepack) 1 bottle MISC SEEINSTR ONE Stop: 03/12/20 20:15 Last Admin: 03/12/20 20:37 Dose: 1 bottle Documented by: LAYNE Vital Signs Vital signs: Vital Signs - 8 hr 03/12/20 16:15 03/12/20 16:29 03/12/20 16:30 Temperature 97.7 F Pulse Rate 91 H 89 88 Respiratory Rate 20 Blood Pressure 167/83 H Pulse Oximetry 99 99 99 03/12/20 16:34 03/12/20 17:00 03/12/20 17:17 Temperature Pulse Rate 87 94 H 87 Respiratory Rate 15 25 H 15 Blood Pressure 154/106 H 144/78 H 140/85 Pulse Oximetry 99 99 97 03/12/20 17:30 03/12/20 18:00 03/12/20 18:51 Temperature Pulse Rate 92 H 82 82 Respiratory Rate 21 20 Blood Pressure 132/85 143/82 H Pulse Oximetry 100 100 92 03/12/20 19:00 03/12/20 19:30 03/12/20 21:29 Temperature Pulse Rate 79 81 80 Respiratory Rate 20 19 12 Blood Pressure 143/82 H Pulse Oximetry 98 99 96 <Ezio De La Rosa DO - Last Filed: 03/12/20 23:40> Course Course Narrative: Patient received in sign-out from Dr. Pedraza. I performed an independent history and physical, of spend a significant amount of time at the bedside discussing the case with both patient and her . Her symptoms have largely been present for quite a long time and the sharp, colicky type pain on her left side is all that was new today. The exam, labs, and imaging are very reassuring. She states the pain was sharp and stabbing and without provocation or palliation. She was unable to find a position of comfort. There is no blood in the urine or suggestion of a passed kidney stone on CT. Given the relative chronicity of her symptoms i discussed the possibility of a GI referral from her PCP and she said she discuss that with her. Return precautions given and questions answered to her apparent satisfaction. Orders Ordered: Discontinued Medications Hydrocodone Bitart/Acetaminophen (Hydrocodone/Acet 5/325 Prepack) [facility] Stop: 03/12/20 20:15 Last Admin: 03/12/20 20:37 Dose: 1 bottle Documented by: LAYNE Sodium Chloride (Normal Saline 0.9%) 1,000 mls @ 1,000 mls/hr IV BOLUS ONE Stop: 03/12/20 17:42 Last Infusion: 03/12/20 19:51 Dose: 0 mls/hr Documented by: Admin: 03/12/20 17:00 Dose: 1,000 mls/hr Documented by: LAYNE Morphine Sulfate (Morphine 4 Mg/Ml Inj) 4 mg IV NOW ONE Stop: 03/12/20 17:43 Last Admin: 03/12/20 17:49 Dose: 4 mg Documented by: LAYNE Ondansetron HCl (Ondansetron 4 Mg Odt Prepack) 1 bottle MISC SEEINSTR ONE Stop: 03/12/20 20:15 Last Admin: 03/12/20 20:37 Dose: 1 bottle Documented by: LAYNE Vital Signs Vital signs: Vital Signs - 8 hr 03/12/20 16:15 03/12/20 16:29 03/12/20 16:30 Temperature 97.7 F Pulse Rate 91 H 89 88 Respiratory Rate 20 Blood Pressure 167/83 H Pulse Oximetry 99 99 99 03/12/20 16:34 03/12/20 17:00 03/12/20 17:17 Temperature Pulse Rate 87 94 H 87 Respiratory Rate 15 25 H 15 Blood Pressure 154/106 H 144/78 H 140/85 Pulse Oximetry 99 99 97 03/12/20 17:30 03/12/20 18:00 03/12/20 18:51 Temperature Pulse Rate 92 H 82 82 Respiratory Rate 21 20 Blood Pressure 132/85 143/82 H Pulse Oximetry 100 100 92 03/12/20 19:00 03/12/20 19:30 03/12/20 21:29 Temperature Pulse Rate 79 81 80 Respiratory Rate 20 19 12 Blood Pressure 143/82 H Pulse Oximetry 98 99 96 Medical Decision Making <Yossi Pedraza, - Last Filed: 03/13/20 07:06> Lab Data Lab results reviewed: Yes I reviewed the patient's lab results. Result diagrams: 03/12/20 16:36 03/12/20 16:36 Labs: Lab Results 03/12/20 03/12/20 Range/Units 16:36 16:36 WBC 9.0 (4.5-11.0) X10^3/uL RBC 4.72 (4.0-5.2) X10^6/uL Hgb 14.0 (12.0-16.0) g/dL Hct 41.7 (36-46) % MCV 88.4 (80-100) fL MCH 29.6 (26-34) PG MCHC 33.5 (30-36) % RDW 13.0 (11.6-14.8) % Plt Count 287 (150-400) X10^3/uL Neut % (Auto) 66.4 (50-75) % Lymph % (Auto) 23.8 L (25-40) % [place] % (Auto) 7.9 (3-14) % Eos % (Auto) 1.1 L (2-4) % Baso % (Auto) 0.8 (0-2) % Neut # (Auto) 5900 (8901-9522) /uL Lymph # (Auto) 2100 (3792-9728) /uL [place] # (Auto) 700 (0-900) /uL Eos # (Auto) 100 (0-450) /uL Baso # (Auto) 100 (0-100) /uL Sodium 140 (137-145) mmol/L Potassium 3.5 (3.4-5.1) mmol/L Chloride 105 (98-107) mmol/L Carbon Dioxide 30 (22-32) mmol/L BUN 8 (7-17) mg/dL Creatinine 0.60 (0.52-1.04) mg/dL Estimated GFR > 60.0 (>60) mL/min BUN/Creatinine Ratio 13.3 (6-22) Glucose 84 (70-100) mg/dL Calcium 9.4 (8.4-10.2) mg/dL Total Bilirubin 0.3 (0.2-1.3) mg/dL AST 24 (14-36) IU/L ALT 19 (<35) IU/L Alkaline Phosphatase 81 (38-126) U/L Total Protein 7.4 (6.3-8.2) g/dL Albumin 4.4 (3.5-5.0) g/dL Globulin 3.0 (1.7-4.1) g/dL Albumin/Globulin Ratio 1.5 (1.0-2.8) Lipase 227 (23-300) U/L Urine Dip Bedside Urine Glucose Negative Bedside Urine Bilirubin - Negative Bedside Urine Ketone - Negative Urine Specific [place] 1.010 Bedside Urine Occult Blood - Negative Bedside Urine pH 6.0 Bedside Urine Protein - Negative Bedside Urine Urobilinogen - Negative Bedside Urine Nitrite - Negative Bedside Urine Leukocytes - Negative Esterase Point of care testing: Urine Dip Bedside Urine Glucose Negative Bedside Urine Bilirubin - Negative Bedside Urine Ketone - Negative Urine Specific [place] 1.010 Bedside Urine Occult Blood - Negative Bedside Urine pH 6.0 Bedside Urine Protein - Negative Bedside Urine Urobilinogen - Negative Bedside Urine Nitrite - Negative Bedside Urine Leukocytes - Negative Esterase Imaging Data CT scan - abdomen/pelvis: Radiologist's Impression: [address] [id number] Scan ReportSigned Patient: Marlyn Armendariz [facility]#: [id number]: 2Acct:[id number]/Sex: 60 / FDate of Service: 03/12/20Loc: EDAccession Number: [id number] Procedure: CT abdomen pelvis w con Ordering Provider: Yossi Pedraza D.O. PROCEDURE: CT ABDOMEN PELVIS W CON INDICATIONS: Left-sided abdominal pain TECHNIQUE: After the administration of intravenous contrast, 5 mm thick sections acquired from the diaphragm to the symphysis. 5 mm coronal and sagittal reformats were acquired. For radiation dose reduction, the following was used: automated exposure control, adjustment of mA and/or kV according to patient size. COMPARISON: [facility], CT, CT-IVP, 01/11/2011, 12:34. FINDINGS: Image quality: Excellent. ABDOMEN: Lung bases: Lung bases are clear. Heart size is normal. Moderate-sized hiatal hernia. Solid organs: Liver is normal in size and enhancement. There are a few scattered subcentimeter hepatic hypodensities which are too small to accurately charact erize but likely represent cysts versus hemangiomas. Gallbladder is decompressed but otherwise unremarkable. Biliary system is non dilated. Pancreas enhances normally. Spleen is normal in size and enhancement. No adrenal nodules. Kidneys demonstrate normal size and enhancement, without hydronephrosis. Peritoneum and bowel: Bowel loops demonstrate normal wall thickness and caliber. No free fluid or air. Scattered colonic diverticulosis without acute diverticulitis. Normal appendix. Nodes and vessels: No retroperitoneal or mesenteric adenopathy by size criteria. Aorta and inferior vena cava are normal in size. Miscellaneous: No ventral hernias. PELVIS: Genitourinary: Bladder wall thickness is normal degree of bladder distention. Status post hysterectomy. Miscellaneous: No inguinal hernias or adenopathy. Bones: No suspicious bony lesions. No acute vertebral body compression fractures. Multilevel spondylitic changes of the imaged spine. IMPRESSION: 1. CT abdomen and pelvis without acute abnormalities to explain patient's left- sided abdominal pain. There is scattered colonic diverticulosis without evidence for acute diverticulitis. Appendix is normal. 2. Moderate-sized hiatal hernia. Dictated by: Lauri Zambrano M.D. on 03/12/2020 at 17:22 Approved by: Lauri Zambrano M.D. on 03/12/2020 at 17:30 ECG Data Attestation: I personally reviewed and interpreted this ECG as follows: Prior ECG tracings: not available for review Interpretation: Sinus rhythm Ventricular rate 84 Normal axis Normal QRS Normal QTC No ST T wave changes MDM Narrative Medical decision making narrative: Patient does have left-sided abdominal tenderness. Her labs are unremarkable. Urine is unremarkable. Her CT scan shows no acute pathology. She does seem to have 2 different types of discomfort in the left abdomen. One that is deep that started on Monday and another that is sharp that seems to be more superficial that is reproduced with does light palpation. She has no rash over the area that would agree concern for zoster. It is in her left lower quadrant left adnexa. Pelvic ultrasound ordered to evaluate for ovarian pathology. Care turned over to Dr. De La Rosa to follow-up and disposition. <Ezio De La Rosa, - Last Filed: 03/12/20 23:40> Lab Data Labs: Lab Results 03/12/20 03/12/20 Range/Units 16:36 16:36 WBC 9.0 (4.5-11.0) X10^3/uL RBC 4.72 (4.0-5.2) X10^6/uL Hgb 14.0 (12.0-16.0) g/dL Hct 41.7 (36-46) % MCV 88.4 (80-100) fL MCH 29.6 (26-34) PG MCHC 33.5 (30-36) % RDW 13.0 (11.6-14.8) % Plt Count 287 (150-400) X10^3/uL Neut % (Auto) 66.4 (50-75) % Lymph % (Auto) 23.8 L (25-40) % [place] % (Auto) 7.9 (3-14) % Eos % (Auto) 1.1 L (2-4) % Baso % (Auto) 0.8 (0-2) % Neut # (Auto) 5900 (0349-6956) /uL Lymph # (Auto) 2100 (0217-2521) /uL [place] # (Auto) 700 (0-900) /uL Eos # (Auto) 100 (0-450) /uL Baso # (Auto) 100 (0-100) /uL Sodium 140 (137-145) mmol/L Potassium 3.5 (3.4-5.1) mmol/L Chloride 105 (98-107) mmol/L Carbon Dioxide 30 (22-32) mmol/L BUN 8 (7-17) mg/dL Creatinine 0.60 (0.52-1.04) mg/dL Estimated GFR > 60.0 (>60) mL/min BUN/Creatinine Ratio 13.3 (6-22) Glucose 84 (70-100) mg/dL Calcium 9.4 (8.4-10.2) mg/dL Total Bilirubin 0.3 (0.2-1.3) mg/dL AST 24 (14-36) IU/L ALT 19 (<35) IU/L Alkaline Phosphatase 81 (38-126) U/L Total Protein 7.4 (6.3-8.2) g/dL Albumin 4.4 (3.5-5.0) g/dL Globulin 3.0 (1.7-4.1) g/dL Albumin/Globulin Ratio 1.5 (1.0-2.8) Lipase 227 (23-300) U/L Urine Dip Bedside Urine Glucose Negative Bedside Urine Bilirubin - Negative Bedside Urine Ketone - Negative Urine Specific [place] 1.010 Bedside Urine Occult Blood - Negative Bedside Urine pH 6.0 Bedside Urine Protein - Negative Bedside Urine Urobilinogen - Negative Bedside Urine Nitrite - Negative Bedside Urine Leukocytes - Negative Esterase Point of care testing: Urine Dip Bedside Urine Glucose Negative Bedside Urine Bilirubin - Negative Bedside Urine Ketone - Negative Urine Specific [place] 1.010 Bedside Urine Occult Blood - Negative Bedside Urine pH 6.0 Bedside Urine Protein - Negative Bedside Urine Urobilinogen - Negative Bedside Urine Nitrite - Negative Bedside Urine Leukocytes - Negative Esterase Imaging Data CT scan - abdomen/pelvis: Radiologist's Impression: Marlyn Armendariz Dottie 60 F [address] [id number] Scan ReportSigned Patient: Marlyn Armendariz [facility]#: [id number]: 1960cct:[id number]/Sex: 60 / FDate of Service: 03/12/20Loc: EDAccession Number: [id number] Procedure: CT abdomen pelvis w con Ordering Provider: Yossi Pedraza D.O. PROCEDURE: CT ABDOMEN PELVIS W CON INDICATIONS: Left-sided abdominal pain TECHNIQUE: After the administration of intravenous contrast, 5 mm thick sections acquired from the diaphragm to the symphysis. 5 mm coronal and sagittal reformats were acquired. For radiation dose reduction, the following was used: automated exposure control, adjustment of mA and/or kV according to patient size. COMPARISON: [facility], CT, CT-IVP, 01/11/2011, 12:34. FINDINGS: Image quality: Excellent. ABDOMEN: Lung bases: Lung bases are clear. Heart size is normal. Moderate-sized hiatal hernia. Solid organs: Liver is normal in size and enhancement. There are a few scattered subcentimeter hepatic hypodensities which are too small to accurately characterize but likely represent cysts versus hemangiomas. Gallbladder is decompressed but otherwise unremarkable. Biliary system is non dilated. Pancreas enhances normally. Spleen is normal in size and enhancement. No adrenal nodules. Kidneys demonstrate normal size and enhancement, without hydronephrosis. Peritoneum and bowel: Bowel loops demonstrate normal wall thickness and caliber. No free fluid or air. Scattered colonic diverticulosis without acute diverti culitis. Normal appendix. Nodes and vessels: No retroperitoneal or mesenteric adenopathy by size criteria. Aorta and inferior vena cava are normal in size. Miscellaneous: No ventral hernias. PELVIS: Genitourinary: Bladder wall thickness is normal degree of bladder distention. Status post hysterectomy. Miscellaneous: No inguinal hernias or adenopathy. Bones: No suspicious bony lesions. No acute vertebral body compression fractures. Multilevel spondylitic changes of the imaged spine. IMPRESSION: 1. CT abdomen and pelvis without acute abnormalities to explain patient's left- sided abdominal pain. There is scattered colonic diverticulosis without evidence for acute diverticulitis. Appendix is normal. 2. Moderate-sized hiatal hernia. Dictated by: Lauri Zambrano M.D. on 03/12/2020 at 17:22 Approved by: Lauri Zambrano M.D. 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 PROCEDURE: PELVIC COMPLETE INDICATIONS: LEFT ADNEXAL AND ABDOMINAL PAIN TECHNIQUE: Real-time scanning was performed of the pelvic organs, with image documentation. Additional endovaginal scanning was necessary due to incomplete visualization of the adnexal and endometrial structures by transabdominal scanning. COMPARISON: [facility], PELVIC COMPLETE, 10/31/2014, 13:50. FINDINGS: Transabdominal scanning: Limited scanning through the kidneys shows no hydronephrosis. Suggestion of minimal right renal pelviectasis. No pathologic free abdominal or pelvic fluid. Endovaginal scanning: Uterus: Uterus is atrophic measuring 4.7 x 3.7 x 2.5 cm. The endometrium measures 6 mm in combined thickness. Nabothian cysts are noted. Ovaries: Right ovary measures 1.7 x 1.6 x 1.1 cm. Right ovarian arterial and venous flow visualized. The left ovary is not well seen. No suspicious ovarian or adnexal mass lesions. IMPRESSION: 1. Pelvis without acute sonographic abnormalities; however, the left ovary was not well visualized. 2. Suggestion of minimal right sided renal pelviectasis. Otherwise, no hydronephrosis identified. Dictated by: Lauri Zambrano M.D. on 03/12/2020 at 19:11 Approved by: Lauri Zambrano M.D. on 03/12/2020 at 19:14 Discharge Plan Departure Patient Disposition: Home Clinical Impression: Abdominal pain Qualifiers: Abdominal location: left lower quadrant Qualified Code(s): R10.32 - Left lower quadrant pain Instructions: Acute Abdominal Pain Activity Restrictions/Additional Instructions: *You have been diagnosed with [acute on chronic abdominal pain, very reassuring lab work, physical exam and imaging. There is likely a spasming, colicky component to your pain] *What to do: *Take medications as directed *Follow up with your primary care provider in 2-3 days, call for an appointment. Let them know you were seen in the Emergency Department and that we ask that you be seen in follow up. Given the chronicity of your abdominal pain he would seem reasonable to discuss a possible referral to Gastroenterology for a further workup of your pain, and digestive troubles. *Return to ER if you should have any new, worsening or concerning symptoms Prescriptions: New hydrocodone-acetaminophen 5-325 mg tablet 1 tab PO Q4-6H PRN (Reason: pain) Qty: 10 RF: 0 hyoscyamine sulfate 0.125 mg tablet 0.125 mg PO BID-QID PRN (Reason: dyspepsia) Qty: 20 RF: 0 Referrals: Christine Colvin MD [Primary Care Provider] -
[2020-03-12 16:50] LABS: Add Manual Diff / Slide Review NO; Basophils Absolute Auto 100 /uL (0-100); Basophils Percent Auto 0.8 % (0-2); Eosinophils Absolute Auto 100 /uL (0-450); Eosinophils Percent Auto 1.1 % (2-4); Hematocrit 41.7 % (36-46); Lymphocytes Absolute Auto 2100 /uL (1100-4500); Lymphocytes Percent Auto 23.8 % (25-40); Mean Corpuscular HGB Conc 33.5 % (30-36); Mean Corpuscular Hemoglobin 29.6 PG (26-34); Mean Corpuscular Volume 88.4 fL (80-100); Monocytes Absolute Auto 700 /uL (0-900); Monocytes Percent Auto 7.9 % (3-14); Neutrophils Absolute Auto 5900 /uL (1500-7000); Neutrophils Percent Auto 66.4 % (50-75); Platelet Count 287 X10^3/uL (150-400); Red Blood Cell Count 4.72 X10^6/uL (4.0-5.2)
[2020-03-12 16:57] LABS: Alanine Aminotransferase 19 IU/L (<35); Albumin 4.4 g/dL (3.5-5.0); Albumin Globulin Ratio 1.5 (1.0-2.8); Alkaline Phosphatase 81 U/L (38-126); Aspartate Aminotransferase 24 IU/L (14-36); BUN Creatinine Ratio 13.3 (6-22); Bilirubin Total 0.3 mg/dL (0.2-1.3); Blood Urea Nitrogen 8 mg/dL (7-17); Calcium 9.4 mg/dL (8.4-10.2); Carbon Dioxide 30 mmol/L (22-32); Chloride 105 mmol/L (98-107); Estimated Glomerular Filt Rate > 60.0 mL/min (>60); Glucose 84 mg/dL (70-100); HEMOLYSIS < 15 (0-50); Lipase 227 U/L (23-300); Potassium 3.5 mmol/L (3.4-5.1); Sodium 140 mmol/L (137-145); Total Protein 7.4 g/dL (6.3-8.2)
[2020-03-12] MEDS: SODIUM CHLORIDE 0.9% 1,000 ML 1000 ML IV (17:00)
[2020-03-12] MEDS: MORPHINE 4 MG/ML INJ IV (17:49)
--- NOTE | 2020-03-12 17:52 | DI.US.S_ITS ---
PROCEDURE: US PELVIC COMPLETE INDICATIONS: LEFT ADNEXAL AND ABDOMINAL PAIN TECHNIQUE: Real-time scanning was performed of the pelvic organs, with image documentation. Additional endovaginal scanning was necessary due to incomplete visualization of the adnexal and endometrial structures by transabdominal scanning. COMPARISON: [facility], , PELVIC COMPLETE, 10/31/2014, 13:50. FINDINGS: Transabdominal scanning: Limited scanning through the kidneys shows no hydronephrosis. Suggestion of minimal right renal pelviectasis. No pathologic free abdominal or pelvic fluid. Endovaginal scanning: Uterus: Uterus is atrophic measuring 4.7 x 3.7 x 2.5 cm. The endometrium measures 6 mm in combined thickness. Nabothian cysts are noted. Ovaries: Right ovary measures 1.7 x 1.6 x 1.1 cm. Right ovarian arterial and venous flow visualized. The left ovary is not well seen. No suspicious ovarian or adnexal mass lesions. IMPRESSION: 1. Pelvis without acute sonographic abnormalities; however, the left ovary was not well visualized. 2. Suggestion of minimal right sided renal pelviectasis. Otherwise, no hydronephrosis identified. Dictated by: Lauri Zambrano M.D. on 03/12/2020 at 19:11 Approved by: Lauri Zambrano M.D. on 03/12/2020 at 19:14
[2020-03-12] MEDS: ONDANSETRON 4 MG ODT PREPACK 1 BOTTLE MISC (20:37)
[2020-03-12] MEDS: HYDROCODONE/ACET 5/325 PREPACK 1 BOTTLE MISC (20:37)
== END 2020-03-12 21:32 | disposition home or self-care (01) ==
PROVIDERS: Emergency Medicine; Emergency Provider Emergency Medicine; Family Provider Family Medicine; PCP Student in an Organized Health Care Education/Training Program
DX: R10.32 Left lower quadrant pain (principal); R19.7 Diarrhea, unspecified; R11.0 Nausea; R30.0 Dysuria
CPT/HCPCS: 36415; 74177; 76830; 76856; 80053; 81003; 83690; 85025; 93005; 93010; 96361; 96374; 99283; 99284; J2270; Q9967